=== PATIENT | male | born 1980 | race American Indian/Alaskan Native ===

== ENCOUNTER 2018-01-04 17:25 | Emergency (ER) | payer SELFPAY ==
[2018-01-04 17:31] VITALS: BP 124/89
--- NOTE | 2018-01-04 18:01 | Emergency Department Report ---
ED ENT HPI - General Chief complaint: Dental/Oral Stated complaint: ABCESS Time Seen by Provider: 01/04/18 17:37 Source: patient Mode of arrival: Ambulatory Limitations: No Limitations - History of Present Illness Initial comments: Patient is a 37-year-old [place] male who is presenting with possible abscess to the left nostril for the past 3 days. Patient has a history of poor dentition but states that for the past 3 days he's had increased swelling to the upper lip and inside of the nostril on the left. Patient's had a low-grade fever but denies any nausea vomiting diarrhea. Patient has no issues swallowing. - Related Data Previous Rx's Medication Instructions Recorded Last Taken Type Bacitracin 1 applic INTRANASAL BID #30 01/04/18 Unknown Rx oint...g. Clindamycin [Clindamycin CAP] 300 mg PO Q8H 7 Days cap 01/04/18 Unknown Rx HYDROcodone/APAP 5-325 [[employer] 1 each PO Q4HR PRN #12 tablet 01/04/18 Unknown Rx 5/325] Ibuprofen [Motrin] 800 mg PO Q8HR PRN #20 tablet 01/04/18 Unknown Rx Allergies Allergy/AdvReac Type Severity Reaction Status Date / Time No Known Allergies Allergy Unverified 01/04/18 17:28 ED Dental HPI - General Chief complaint: Dental/Oral Stated complaint: ABCESS Time Seen by Provider: 01/04/18 17:37 Source: patient Mode of arrival: Ambulatory Limitations: No Limitations - Related Data Previous Rx's Medication Instructions Recorded Last Taken Type Bacitracin 1 applic INTRANASAL BID #30 01/04/18 Unknown Rx oint...g. Clindamycin [Clindamycin CAP] 300 mg PO Q8H 7 Days cap 01/04/18 Unknown Rx HYDROcodone/APAP 5-325 [[employer] 1 each PO Q4HR PRN #12 tablet 01/04/18 Unknown Rx 5/325] Ibuprofen [Motrin] 800 mg PO Q8HR PRN #20 tablet 01/04/18 Unknown Rx Allergies Allergy/AdvReac Type Severity Reaction Status Date / Time No Known Allergies Allergy Unverified 01/04/18 17:28 ED Review of Systems ROS: Stated complaint: ABCESS Other details as noted in HPI Comment: All other systems reviewed and negative ED Past Medical Hx - Past Medical History Previous Medical History?: No - Surgical History Past Surgical History?: No - Social History Smoking Status: Current Every Day Smoker Substance Use Type: Alcohol - Medications Home Medications: Home Medications Medication Instructions Recorded Confirmed Last Taken Type Bacitracin 1 applic INTRANASAL BID #30 01/04/18 Unknown Rx oint...g. Clindamycin [Clindamycin CAP] 300 mg PO Q8H 7 Days cap 01/04/18 Unknown Rx HYDROcodone/APAP 5-325 [[employer] 1 each PO Q4HR PRN #12 tablet 01/04/18 Unknown Rx 5/325] Ibuprofen [Motrin] 800 mg PO Q8HR PRN #20 tablet 01/04/18 Unknown Rx ED Physical Exam - General Limitations: No Limitations General appearance: alert, in no apparent distress - Head Head exam: Present: atraumatic, normocephalic - Eye Eye exam: Present: normal appearance - ENT ENT exam: Present: mucous membranes moist, other (patient has very poor dentition and diffuse dental caries and decay especially in the frontal teeth. There is some swelling in induration and firmness to the upper lip that extends into the left nostril. There is no purulent drainage at this time.) - Neck Neck exam: Present: normal inspection - Respiratory Respiratory exam: Present: normal lung sounds bilaterally. Absent: respiratory distress - Cardiovascular Cardiovascular Exam: Present: regular rate, normal rhythm. Absent: systolic murmur, diastolic murmur, rubs, gallop - GI/Abdominal GI/Abdominal exam: Present: soft, normal bowel sounds - Rectal Rectal exam: Present: deferred - Extremities Exam Extremities exam: Present: normal inspection - Back Exam Back exam: Present: normal inspection - Neurological Exam Neurological exam: Present: alert, oriented X3 - Psychiatric Psychiatric exam: Present: normal affect, normal mood - Skin Skin exam: Present: warm, dry, intact, normal color. Absent: rash ED Course Vital Signs 01/04/18 17:28 Temperature 100.1 F H Pulse Rate 91 H Respiratory 18 Rate Blood Pressure 124/89 O2 Sat by Pulse 98 Oximetry Critical care attestation.: If time is entered above; I have spent that time in minutes in the direct care of this critically ill patient, excluding procedure time. ED Disposition Clinical Impression: Nasal abscess, Dental caries, Facial cellulitis Disposition: - TO HOME OR SELFCARE Is pt being admited?: No Does the pt Need Aspirin: No Condition: Stable Prescriptions: Bacitracin 1 applic INTRANASAL BID #30 oint...g. Clindamycin [Clindamycin CAP] 300 mg PO Q8H 7 Days cap HYDROcodone/APAP 5-325 [[employer] 5/325] 1 each PO Q4HR PRN #12 tablet PRN Reason: Pain Ibuprofen [Motrin] 800 mg PO Q8HR PRN #20 tablet PRN Reason: Pain Referrals: [facility] [Outside] - 3-5 Days
== END 2018-01-04 18:08 | disposition home or self-care (01) ==
LOC: ED 17:25
DX: J34.0 Abscess, furuncle and carbuncle of nose (principal); K02.9 Dental caries, unspecified; L03.211 Cellulitis of face; F17.200 Nicotine dependence, unspecified, uncomplicated
CPT/HCPCS: 99282